=== PATIENT | male | born 1950 | race African-American/Black ===

== ENCOUNTER 2016-11-14 15:04 | Emergency (ER) | payer OTHER ==
--- NOTE | 2016-11-14 15:26 | ED.REPORT ---
HPI-Chest Pain 40 and Over Date of Service Nov 14, 2016 ED Provider: MD Ignacia This is a 66 year old male with a history of HTN [facility] due to measured elevated blood pressure. He did not take his dose of metoprolol, lisinopril, or diazepam today, states these medications cause drowsiness and he did not want to drive to his appointment in this state. Additionally, he reports "gas-like" chest pressure in the last 3 days. Pt denies chest pain, nausea, vomiting, dizziness, shortness of breath, diaphoresis, fever, chills, bowel, or bladder changes at this time. Nursing Notes Stated Complaint: CHEST PAIN Nursing Notes Reviewed: Yes General Time Seen by MD: 15:25 Chief Complaint Other Hx Obtained From: Patient Arrived By: Ambulance Sudden in Onset?: Yes Onset Occurred: Just prior to arrival Symptom Duration: Since onset Severity: Current: No pain currently Pertinent Negative: Pt denies other symptoms Recent Healthcare: No recent hospitalization, Recent doctor visit Similar Sx Previous: No Past Medical History Past Medical History Reports: Hypertension Ambulatory Status Independent Review of Systems Constitutional: Denies: Chills, Fever Respiratory: Denies: Shortness of breath Cardiovascular: Denies: Chest pain GI: Denies: Abdominal pain, Nausea, Vomiting Neurologic: Denies: Headache Complete sys rev & neg: except as marked. Physical Exam Initial Vital Signs Vital Signs (First) Date Time Temp Pulse Resp B/P Pulse Ox O2 Delivery O2 Flow Rate FiO2 11/14/16 15:32 36.7 61 18 199/87 98 Room Air - Initial VS: Reviewed Head / Eyes: Atraumatic, Normocephalic, PERRL ENT: Mucous membranes moist, Conjunctiva normal, No scleral icterus Neck: Supple, Non-tender, Full range of motion Extremities: Vascular intact, Neuro intact, No swelling, No tenderness Skin: Warm, Dry, No cyanosis Neurologic: Alert, Oriented, Nonfocal Psychiatric: Mood/affect normal, Behavior normal, Normal thought content General/Constitutional: Awake, Alert Respiratory / Chest: Breath sounds NL, Breath sounds = bilat, No respiratory distress, No rales, No rhonchi, No wheezing, No stridor, No chest tenderness Cardiovascular: Heart rate NL, Regular rhythm, Heart sounds NL, No murmurs, Peripheral circulation NL, Pulses = bilaterally, No gross BP differential Abdomen: Soft, Non-tender, McBurney's non-tender, No guarding, No rebound, BS normoactive, No distention, No hernia, No palpable mass Interpretation & Diagnostics Lab Results Interpretation Result Diagram: 11/14/16 1520 11/14/16 1520 Test 11/14/16 15:20 White Blood Count 4.4th/mm3 (3.8-10.1) Red Blood Count 5.72mil/mm3 (4.40-5.80) Hemoglobin 16.8g/dL (13.8-17.2) Hematocrit 50.8% (41.0-50.0) Mean Corpuscular Volume 88.8fL (81-100) Mean Corpuscular Hemoglobin 29.4pg (27.0-35.0) Mean Corpuscular Hemoglobin Concent 33.1% (32.0-37.0) Red Cell Distribution Width 14.4% (12.3-15.4) Platelet Count 136bil/L (150-400) Neutrophils (%) (Auto) 51.3% (40-74) Lymphocytes (%) (Auto) 36.7% (14-46) Monocytes (%) (Auto) 10.2% (4-12) Eosinophils (%) (Auto) 0.9% (0-5) Basophils (%) (Auto) 0.7% (0-3) Hold Purple Top Tube Received (Received) Hold Blue Top Tube Received (Received) Sodium Level 142mEq/L (134-144) Potassium Level 4.1mEq/L (3.5-5.2) Chloride Level 104mEq/L (97-108) Carbon Dioxide Level 24mmol/L (18-29) Blood Urea Nitrogen 10mg/dL (8-27) Creatinine 1.30mg/dL (0.76-1.27) Estimat Glomerular Filtration Rate 59mL/min (>59) Glucose Level 89mg/dL (60-99) Calcium Level 9.4mg/dL (8.5-10.1) Magnesium Level 1.8mg/dL (1.6-2.6) Total Bilirubin 1.0mg/dL (0.0-1.2) Aspartate Amino Transf (AST/SGOT) 16U/L (0-50) Alanine Aminotransferase (ALT/SGPT) 18U/L (0-44) Alkaline Phosphatase 66U/L (25-160) Troponin T < 0.010ug/L (0.0-0.011) Total Protein 8.2g/dL (6.4-8.4) Albumin 4.5g/dL (3.4-5.0) Hold Red Top Tube Received (Received) Hold Meridian Top Tube Received (Received) ECG Interpretation ECG Interpretation: NSR at a rate of [address] flattening Time: 15:22 Interpreted by: ED physician X-Ray Chest Interpretation Chest Xray Interpretation: IMPRESSION: 1. Median sternotomy with borderline heart size. 2. No evidence of failure or pneumonia. Dictated by: Pb Garber M.D. on 11/14/2016 at 16:40 Approved by: Pb Garber M.D. on 11/14/2016 at 16:47 Re-Eval/Medical Decision Med Decision/Clinical Course given prolinged symptoms and minimal chest symptoms did not repeat troponin. given metoprolol and lisinoprin- BP still elevated but not alarming. He is chronically on diazepam but not showing signs of WD. Time of Eval: 18:18 Re-Evaluation/Progress Note: Re-checked, discussed lab and imaging results and plan for discharge. Pt understands and agrees with plan, all questions addressed. Counseled Regarding: Diagnosis, Lab results, Need for follow-up, When/why to return to ED Discharge & Departure Primary Impression: Elevated blood pressure Disposition: Home Discharge Condition All VS Reviewed: Yes Condition: Stable Patient Instructions: Chronic Hypertension (ED) Additional Instructions: Emergency department evaluation today included interview, examination, lab testing, chest x-ray, ECG, and review of past medical history. Your workup was reassuring today. Be sure to take all of your prescribed medications as instructed. Follow-up with your primary care provider. Return to the emergency department if you develop any new or worsening symptoms such as chest pain, shortness of breath, dizziness, or lightheadedness. [place]by[place] Attestation Portions of this note were transcribed by Dayana Pate. I, Dr. Beth personally performed the history, physical exam and medical decision-making; I reviewed and confirmed the accuracy of the information in the transcribed note. Signed by Kelly Bee, 11/14/2016 at 18:00. Ja Beth MD Nov 14, 2016 15:26 DAYANA PATE Nov 14, 2016 15:28
[2016-11-14 15:32] VITALS: BP 199/87; PULSE 61; RESP 18; O2SAT 98
[2016-11-14 16:13] LABS: BASOPHILS % (AUTO) 0.7 % (0-3); EOSINOPHILS % (AUTO) 0.9 % (0-5); MONOCYTES % (AUTO) 10.2 % (4-12); Mean Corpuscular Hemoglobin 29.4 pg (27.0-35.0); Mean Corpuscular Volume 88.8 fL (81-100); NEUTROPHILS % (AUTO) 51.3 % (40-74); Platelet Count 136 bil/L (150-400)
[2016-11-14 16:34] LABS: TROPONIN T < 0.010 ug/L (0.0-0.011)
[2016-11-14 16:38] LABS: Magnesium 1.8 mg/dL (1.6-2.6)
--- NOTE | 2016-11-14 16:49 | DRSVH ---
PROCEDURE: X-RAY CHEST ONE VIEW, PORTABLE ([id number]) INDICATIONS: chest pain TECHNIQUE: One view of the chest was acquired. COMPARISON: None. FINDINGS: Surgical changes and devices: Median sternotomy. Lungs and pleura: No pleural effusions or pneumothorax. Lungs are clear. No infiltrate or vascular congestion. Mediastinum: Mediastinal contours appear normal. Heart size is borderline enlarged. Bones and chest wall: No suspicious bony lesions. Overlying soft tissues appear unremarkable. IMPRESSION: 1. Median sternotomy with borderline heart size. 2. No evidence of failure or pneumonia. Dictated by: Pb Garber M.D. on 11/14/2016 at 16:40 Approved by: Pb Garber M.D. on 11/14/2016 at 16:47
[2016-11-14 16:56] VITALS: BP 189/81; PULSE 64; RESP 18; O2SAT 94
[2016-11-14 19:05] VITALS: BP 196/91; PULSE 54; RESP 18; O2SAT 97
== END 2016-11-14 19:06 | disposition home or self-care (01) ==
LOC: EDBD 15:04 → SED 15:04
DX: I10 Essential (primary) hypertension (principal)